=== PATIENT | female | born 2005 | race Caucasian/White ===

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

== ENCOUNTER 2024-10-23 09:35 | Emergency (ER) | payer OTHER ==
[~2024-10-23] VITALS: Ht 170.2 cm; Wt 111.5 kg
[~2024-10-23 09:35] MED LIST changes: +ZOLOFT25 MG PO
[2024-10-23] MEDS ORDERED: MEDROXYPRO150 MG/1 M IM (09:51)
[2024-10-23] MEDS ORDERED: AZITHROMYCIN250 MG PO (09:51)
[2024-10-23] MEDS ORDERED: CLINDAMYCIN PHOSPHATE/D5W 600 MG/50 ML PIGGYBACK IV ONE (10:15)
[2024-10-23] MEDS ORDERED: LIDOCAINE 2% (VISCOUS) HCL 15 ML UDC MT ONE (10:15)
[2024-10-23] MEDS ORDERED: KETOROLAC TROMETHAMINE 30 MG/ML VIAL IV ONE (10:15)
[2024-10-23] MEDS ORDERED: DEXAMETHASONE SOD PHOS 10 MG/ML VIAL IV ONE (10:15)
[2024-10-23] MEDS ORDERED: HYDROCODON-ACE1 EA10 PO (11:54)
[2024-10-23] MEDS ORDERED: ONDANSETRON ODT4 MG PO (11:54)
[2024-10-23] MEDS ORDERED: CLEOCIN HCL300 MG PO (11:54)
[2024-10-23 12:04] VITALS: BP 124/84
== END 2024-10-23 12:04 | disposition home or self-care (01) ==
LOC: ED 09:35
DX: J36 Peritonsillar abscess (principal); Z88.0 Allergy status to penicillin; Z79.890 Hormone replacement therapy
CPT/HCPCS: 10160; 96374; 96375; 99282-25; J1100; J1885